=== PATIENT | male | born 1955 | race Caucasian/White ===

== ENCOUNTER 2020-08-21 23:23 | Emergency (ER) | payer MEDICARE ==
[2020-08-22 00:33] LABS: HEMOGLOBIN 12.7 gm/dl (14.0-17.5); RED BLOOD COUNT 4.84 M/UL (4.20-5.50); WHITE BLOOD COUNT 9.1 K/UL (4.5-11.0)
[2020-08-22] MEDS ORDERED: HYDROCODON-ACE1 EAC4 PO (03:25)
[2020-08-22] MEDS ORDERED: OMNICEF 300 MG300 MG PO (03:25)
[2020-08-22] MEDS ORDERED: ZOFRAN ODT 4 MG4 MG PO (03:30)
== END 2020-08-22 03:47 | disposition home or self-care (01) ==
LOC: ER1 23:23
PROVIDERS: Family Medicine
DX: N13.2 Hydronephrosis with renal and ureteral calculous obstruction (principal); R16.0 Hepatomegaly, not elsewhere classified; R16.1 Splenomegaly, not elsewhere classified; N39.0 Urinary tract infection, site not specified
CPT/HCPCS: 80053; 81001; 83690; 85025; 87086; 96365; 96375; 99284; J0696; J2270; J2405; Q9967

== ENCOUNTER → 2020-09-23 | Outpatient (CLI) | payer MEDICARE ==
[~2020-09-23] MED LIST: ACETAMINOPHEN-1 EAC1 PO; ACETAMINOPHEN325 MG PO; HYDROCODON-ACE1 EAC4 PO; OMNICEF 300 MG300 MG PO; SENNA S TABLET1 EACH PO; ZOFRAN ODT 4 MG4 MG PO
[2020-09-23 08:23] LABS: HEMOGLOBIN 12.1 gm/dl (14.0-17.5); RED BLOOD COUNT 4.43 M/UL (4.20-5.50); WHITE BLOOD COUNT 6.6 K/UL (4.5-11.0)
== END ==
LOC: US 07:20
PROVIDERS: Internal Medicine
DX: R93.2 Abnormal findings on diagnostic imaging of liver and biliary tract (principal); C43.39 Malignant melanoma of other parts of face; Z85.820 Personal history of malignant melanoma of skin; R16.0 Hepatomegaly, not elsewhere classified; R16.1 Splenomegaly, not elsewhere classified; C78.7 Secondary malignant neoplasm of liver and intrahepatic bile duct
CPT/HCPCS: 36415; 76942; 85025; 85610; 85730; 88342

== ENCOUNTER → 2020-10-03 | Outpatient (CLI) | payer MEDICARE | LOC: CT 10:30 → MRI 11:00 | DX: Z12.89 Encounter for screening for malignant neoplasm of other sites (principal); C43.39 Malignant melanoma of other parts of face; C43.9 Malignant melanoma of skin, unspecified; C78.89 Secondary malignant neoplasm of other digestive organs; R39.11 Hesitancy of micturition; R93.2 Abnormal findings on diagnostic imaging of liver and biliary tract | CPT/HCPCS: 70553; A9577 ==

== ENCOUNTER 2020-11-18 18:55 | Inpatient (IN) | payer MEDICARE, OTHER ==
[~2020-11-18] VITALS: Ht 172.7 cm; Wt 86.2 kg
[~2020-11-18 18:55] MED LIST changes: -ACETAMINOPHEN-1 EAC1 PO; -ACETAMINOPHEN325 MG PO; -SENNA S TABLET1 EACH PO
[2020-11-18 19:30] LABS: HEMOGLOBIN 14.1 gm/dl (14.0-17.5); RED BLOOD COUNT 5.35 M/UL (4.20-5.50); WHITE BLOOD COUNT 7.5 K/UL (4.5-11.0)
[2020-11-18 19:56] LABS: BUN/CREATININE RATIO 18 (0-10)
[2020-11-18] MEDS ORDERED: SENNA S TABLET1 EACH PO (23:28)
[2020-11-19] MEDS ORDERED: ACETAMINOPHEN325 MG PO (10:57)
[2020-11-19] MEDS ORDERED: ACETAMINOPHEN-1 EAC1 PO (11:00)
== END 2020-11-19 14:32 | disposition home or self-care (01) | DRG 206 ==
LOC: ER1 18:55 → CDU 21:05 → MED SURG 4 21:05
PROVIDERS: Physician Assistant Medical; ADMIT Internal Medicine
DX: M94.0 Chondrocostal junction syndrome [Tietze] (principal); E87.2 Acidosis; C78.7 Secondary malignant neoplasm of liver and intrahepatic bile duct; C78.89 Secondary malignant neoplasm of other digestive organs; J98.11 Atelectasis; R07.81 Pleurodynia; R07.89 Other chest pain; Z20.822 Contact with and (suspected) exposure to COVID-19; R09.02 Hypoxemia; R00.0 Tachycardia, unspecified; Z51.11 Encounter for antineoplastic chemotherapy
CPT/HCPCS: 36415; 71045; 80053; 82550; 82553; 83605; 83874; 84484; 85025; 87040; 93005; 99285; J0456; J0696; J2270; J2405; J7030; Q9967; U0002

== ENCOUNTER → 2021-01-05 | Outpatient (CLI) | payer MEDICARE ==
[~2021-01-05] MED LIST changes: +ACETAMINOPHEN-1 EAC1 PO; +ACETAMINOPHEN325 MG PO; +SENNA S TABLET1 EACH PO
== END ==
LOC: CT 14:30
DX: Z12.89 Encounter for screening for malignant neoplasm of other sites (principal); C43.39 Malignant melanoma of other parts of face; C43.9 Malignant melanoma of skin, unspecified; C79.89 Secondary malignant neoplasm of other specified sites
CPT/HCPCS: 71260; Q9967

== ENCOUNTER → 2021-04-08 | Outpatient (CLI) | payer MEDICARE | LOC: CT 08:00 | DX: Z12.89 Encounter for screening for malignant neoplasm of other sites (principal); C43.39 Malignant melanoma of other parts of face; R93.2 Abnormal findings on diagnostic imaging of liver and biliary tract; C78.89 Secondary malignant neoplasm of other digestive organs | CPT/HCPCS: 71260; Q9967 ==

== ENCOUNTER → 2021-07-07 | Outpatient (CLI) | payer MEDICARE | LOC: CT 11:30 | DX: R93.2 Abnormal findings on diagnostic imaging of liver and biliary tract (principal); C43.39 Malignant melanoma of other parts of face; R39.11 Hesitancy of micturition | CPT/HCPCS: 71260; Q9967 ==

== ENCOUNTER → 2022-01-11 | Outpatient (CLI) | payer MEDICARE | LOC: CT 11:00 | DX: C43.39 Malignant melanoma of other parts of face (principal); R93.2 Abnormal findings on diagnostic imaging of liver and biliary tract; R39.11 Hesitancy of micturition | CPT/HCPCS: 71270; Q9967 ==